=== PATIENT | female | born 1995 | race Caucasian/White ===

== ENCOUNTER 2018-08-31 09:23 | Outpatient (CLI) | payer BC ==
[~2018-08-31] VITALS: Ht 160 cm; Wt 56.2 kg
[2018-08-31] MEDS ORDERED: CETI10TA17 PO (15:44)
[2018-08-31] MEDS ORDERED: RT-ALBUINH IH (15:44)
[2018-08-31] MEDS ORDERED: FLUT1DIS28 IH (15:44)
[2018-08-31] MEDS ORDERED: NITR100C10 PO (15:44)
[2018-08-31] MEDS ORDERED: MONT10TA24 PO (15:44)
[2018-08-31] MEDS ORDERED: PROM25TA14 PO (15:44)
[2018-08-31] MEDS ORDERED: OMEP40CA36 PO (15:44)
[2018-09-05] MEDS ORDERED: [UNRECOGNIZED DRUG - CODE] PO (13:57)
[2018-09-05] MEDS ORDERED: ONDN4T PO (13:57)
[2018-09-05] MEDS ORDERED: PROM25TA14 PO (13:57)
== END 2018-08-31 15:45 | disposition home or self-care (01) ==
LOC: PREOP 09:23
PROVIDERS: ATTEND Surgery
DX: Z01.818 Encounter for other preprocedural examination (principal)

== ENCOUNTER 2018-09-05 10:51 | Day surgery (SDC) | payer BC ==
[~2018-09-05] VITALS: Ht 160 cm; Wt 56.2 kg
[~2018-09-05 10:51] MED LIST: CETI10TA17 PO; FLUT1DIS28 IH; MONT10TA24 PO; NITR100C10 PO; OMEP40CA36 PO; PROM25TA14 PO; RT-ALBUINH IH
[2018-09-05] MEDS ORDERED: NS IV 500 ML 500 ML ONE (10:56)
[2018-09-05] MEDS ORDERED: NS IV 500 ML 500 ML IV PRN (11:01)
[2018-09-05 11:05] VITALS: BP 125/88
[2018-09-05] MEDS ORDERED: LIDOCAINE JELLY 2% 6 ML SYRINGE MM PRN (11:15)
[2018-09-05] MEDS ORDERED: MIDAZOLAM 2 MG/2 ML (VERSED) VIAL IVP ONE (11:15)
[2018-09-05] MEDS ORDERED: HURRICAINE EXT TUBE (BENZOCAINE) XX PRN (11:15)
[2018-09-05] MEDS ORDERED: fentaNYL INJECTION 100 MCG/2 ML AMP IVP ONE (11:15)
[2018-09-05] MEDS ORDERED: MIDAZOLAM 2 MG/2 ML (VERSED) VIAL ONE ×6 (12:09→12:45)
[2018-09-05] MEDS ORDERED: LIDOCAINE JELLY 2% 6 ML SYRINGE ONE (12:09)
[2018-09-05] MEDS ORDERED: fentaNYL INJECTION 100 MCG/2 ML AMP ONE (12:09)
[2018-09-05] MEDS ORDERED: HURRICAINE EXT TUBE (BENZOCAINE) ONE (12:10)
--- NOTE | 2018-09-05 12:24 | Conscious Sedation/ASA ---
Conscious Sedation Pre-Proced Time 11:45 ASA Score 1 For ASA 3 and 4: Consider anesthesia and medical clearance. Also, for patients with a history of failed moderate sedation consider anesthesia. Airway Lungs Heart ASA score ASA 1: a normal healthy patient ASA 2: a patient with a mild systemic disease (mid diabetes, controlled hypertension, obesity ASA 3: a patient with a severe systemic disease that limits activity (angina , COPD, prior Myocardial infarction) ASA 4: a patient with an incapacitating disease that is a constant threat to life (CHF, renal failure) ASA 5: a moribund patient not expected to survive 24 hrs. (ruptured aneurysm) ASA 6: a declared brain patient whose organs are being harvested. For emergent operations, add the letter E after the classification Mallampati Classification Grade 2 Sedation Plan Analgesia, Amnesia, Plan communicated to team members, Discussed options with patient/fam, Discussed risks with patient/fam The patient is an appropriate candidate to undergo the planned procedure, sedation, and anesthesia. The patient immediately re-assessed prior to indication. DANA NICOLE MD Sep 05, 2018 12:24 pm
--- NOTE | 2018-09-05 12:25 | Progress Note-Pre Operative ---
Pre-Operative Progress Note H&P Reviewed The H&P was reviewed, patient examined and no changes noted. Date Seen by Provider: Sep 05, 2018 Time Seen by Provider: 11:45 Date H&P Reviewed: Sep 05, 2018 Time H&P Reviewed: 11:45 Pre-Operative Diagnosis: persistent nausea, dysphagia, weight loss DANA NICLOE MD Sep 05, 2018 12:25 pm
[2018-09-05] MEDS ORDERED: HYDROcodone/APAP 5 MG/325 MG (LORTAB) TAB PO PRN (12:30)
[2018-09-05] MEDS ORDERED: ACETAMINOPHEN 325 MG TABLET PO PRN (12:30)
[2018-09-05] MEDS ORDERED: ONDANSETRON 4 MG/2 ML (SDV) Z0FRAN IV PRN (12:30)
[2018-09-05] MEDS ORDERED: morphine INJ 10 MG/ML 1ML (SYR OR VIAL) IV PRN (12:30)
[2018-09-05 13:25] VITALS: BP 110/67
--- NOTE | 2018-09-05 13:53 | Progress Note-Post Operative ---
Post-Operative Progess Note Surgeon (s)/County Director (s) Surgeon DANA NICOLE MD County Director: NONE Pre-Operative Diagnosis persistent nausea, dysphagia, weight loss Post-Operative Diagnosis reflux esophagitis(stage2-3), small HH(1.5cm), mild-mod gastritis, mild distal esophageal stricture vs. achalasia. Procedure & Operative Findings Date of Procedure 09/05/18 Procedure Performed/Findings EGD with bx and balloon dilatation. Anesthesia Type CS Estimated Blood Loss Estimated blood loss (mL): minimal Specimens/Packing Specimens Removed duodenum, antrum, GE jxn(for barretts and esinophilic esophagitis) DANA NICOLE MD Sep 05, 2018 1:53 pm
[2018-09-05] MEDS ORDERED: ONDN4T PO (13:57)
[2018-09-05] MEDS ORDERED: [UNRECOGNIZED DRUG - CODE] PO (13:57)
[2018-09-05] MEDS ORDERED: PROM25TA14 PO (13:57)
--- NOTE | 2018-09-05 13:59 | Discharge Inst-Surgical ---
D/C Lap Instructions-KIDO New, Converted, or Re-Newed RX: RX on Chart Follow Up Appt in 6 weeks Activity as tolerated High Fiber Diet 25g or more per day Avoid Alcohol, Caffeine, Spicy [place] and Acid foods. Avoid milk and milk products and all sodas. Drink 64 fluid oz or more of fluids per day. Symptoms to Report: Fever over 101 degree F, Nausea/Vomiting If any problems/questions: Contact your physician or go to Emergency Room DANA NICOLE MD Sep 05, 2018 1:59 pm
[2018-09-05 14:00] VITALS: BP 99/75
[2018-09-05 14:14] VITALS: BP 99/75
--- NOTE | 2018-09-05 14:41 | OPERATIVE REPORT ---
DATE OF SERVICE: 09/05/2018 ATTENDING PRIMARY CARE PHYSICIAN: Dr. Loja in [place], [place]. PREOPERATIVE DIAGNOSIS: Persistent nausea, dysphagia, epigastric pain, weight loss. POSTOPERATIVE DIAGNOSES: Reflux esophagitis between stage II and III, mild distal esophageal stricture versus lower esophageal sphincter hypertonicity, small hiatal hernia approximately 1.5 cm in size, mild gastritis. Pylorus and duodenum appeared normal. PROCEDURE: EGD with biopsy and balloon dilatation. SURGEON: Dana Nicole MD ANESTHESIA: Conscious sedation. ESTIMATED BLOOD LOSS: Minimal. FINDINGS: As stated in the postop. DISPOSITION: The patient tolerated the procedure well. INDICATIONS: The patient is a 23-year-old female with a multitude of complaints for the past year that encompassed the upper gastrointestinal tract. She first reports that in early 2018, she has had issues with nausea. 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 She believes that all these biopsies were negative for H. pylori, celiac disease or any Morales's esophagus or dysplasia. She then underwent a gastric emptying study at [place]. She states it did show borderline delayed gastric emptying. However, she was then referred to [facility] where another gastric emptying study was performed, which she reports to be normal. She did undergo a trial of Reglan; however, she did continue to have symptoms of nausea and she has been on different antacids and is currently on omeprazole 40 mg b.i.d.; however, continues to have symptoms. She reports initially that she did have some risk factors including drinking a significant amount of caffeinated beverages would not do however, since her symptoms, she has not drank copious amounts of caffeinated beverages and she does not smoke and rarely has any alcohol. At some point, this was thought to be due to her gallbladder and she underwent a laparoscopic cholecystectomy; however, states that she continues to have this issue with nausea. She also reports that she has undergone an esophageal manometry study as well as a pH probe; however, believes that these were normal. She does also have a history of asthma and allergies. She reports that she has occasional episodes of diarrhea; however, not severe. Her differential diagnosis is wide; however, includes a reflux esophagitis, achalasia, gastritis, H. pylori, duodenitis and food allergies as well as some form of gastrointestinal dysmotility disorder. DESCRIPTION OF PROCEDURE: The patient was brought to the endoscopy suite, laid in the left lateral decubitus position with the head slightly elevated. After adequate IV pain and sedating medications and conscious sedation anesthesia, the mouthpiece was applied. Endoscope was placed in the mouth, visualizing the pharynx and hypopharyngeal region. Vocal cords, epiglottis and vallecula identified and appeared to be normal. The endoscope was then gently intubated. The esophageal opening and esophagus insufflated. Endoscope was then advanced through the first, second and third portion of the esophagus. At the level of the GE junction, a reflux esophagitis between stage II and III identified. There were definite signs of reflux esophagitis. There is also narrowing in this region. However, we could not differentiate a distal esophageal stricture versus hypertonicity of the lower esophageal sphincter. Several biopsies of the GE junction were taken to rule out Morales's esophagus and dysplasia as well as eosinophilic esophagitis. The endoscope was then advanced to the stomach and endoscope retroflexed, visualizing a small hiatal hernia approximately 1.5 cm in size. There was a mild gastritis. There were no formal ulcerations, polyps or any neoplasms identified. There was nothing within the stomach to suggest gastroparesis. A biopsy was taken of the stomach and antrum for H. pylori. Endoscope was then advanced to the pylorus and the first and second portion of the duodenum, which appeared normal with no distal obstructions. We then proceeded with distal esophagus dilatation. A balloon was placed in the stomach and pulled back to the gastroesophageal junction. We first proceeded to 2 atmospheres of pressure of 18 mm and she did show a visible discomfort, which may indicate that she does have a stricture versus some level of achalasia. We then proceeded to 4 atmospheres of pressure or 19 mm in circumferential diameter with moderate resistance and left this in place for approximately 60 seconds. We then desufflated the balloon. Good hemostasis was observed and there were no mucosal tears. The endoscope was slowly withdrawn while taking a second look and suctioning of residual air with no additional findings. The patient tolerated the procedure well. We will await the biopsy results. We will have her continue with her recently prescribed Dexilant; however, we will also proceed with antinausea medications as well as a trial of Motilin. With these findings of potential stricture versus achalasia, we may proceed with another esophageal manometry study as well as a possibility of a possible Gastrografin upper GI as well as small bowel follow through. If she feels better and able to take in food without any nausea or dysphagia, this may represent achalasia and she may benefit from graded dilatation. Job ID: [id number] DocumentID: [id number] Dictated Date: 09/05/2018 13:22:31 Psych Nurse Date: 09/05/2018 14:40:22 Dictated By: DANA NICOLE MD
== END 2018-09-05 14:15 | disposition home or self-care (01) ==
LOC: ENDO 10:51
PROVIDERS: ATTEND Surgery
DX: K22.2 Esophageal obstruction (principal); K21.0 Gastro-esophageal reflux disease with esophagitis; K44.9 Diaphragmatic hernia without obstruction or gangrene; K29.70 Gastritis, unspecified, without bleeding; K31.84 Gastroparesis; J45.909 Unspecified asthma, uncomplicated; Z79.899 Other long term (current) drug therapy
CPT/HCPCS: 84703

== ENCOUNTER 2018-10-30 06:31 | Outpatient (CLI) | payer BC ==
[~2018-10-30] VITALS: Ht 160 cm; Wt 56.2 kg
[~2018-10-30 06:31] MED LIST changes: +ONDN4T PO; +[UNRECOGNIZED DRUG - CODE] PO
[2018-10-30] MEDS ORDERED: CEPH250T PO (10:45)
== END 2018-10-30 10:47 | disposition home or self-care (01) ==
LOC: PREOP 06:31
PROVIDERS: ATTEND Surgery
DX: Z01.818 Encounter for other preprocedural examination (principal)

== ENCOUNTER 2018-11-01 11:18 | Day surgery (SDC) | payer BC ==
[~2018-11-01] VITALS: Ht 160 cm; Wt 56.2 kg
[~2018-11-01 11:18] MED LIST changes: +CEPH250T PO
[2018-11-01 11:25] VITALS: BP 117/81
[2018-11-01] MEDS ORDERED: NS IV 500 ML 500 ML IV PRN (11:25)
[2018-11-01] MEDS ORDERED: NS IV 500 ML 500 ML ONE (11:30)
[2018-11-01] MEDS ORDERED: HURRICAINE EXT TUBE (BENZOCAINE) XX PRN ×2 (11:30→13:45)
--- NOTE | 2018-11-01 12:05 | Conscious Sedation/ASA ---
Conscious Sedation Pre-Proced Time 11:30 ASA Score 1 For ASA 3 and 4: Consider anesthesia and medical clearance. Also, for patients with a history of failed moderate sedation consider anesthesia. Airway Lungs Heart ASA score ASA 1: a normal healthy patient ASA 2: a patient with a mild systemic disease (mid diabetes, controlled hypertension, obesity ASA 3: a patient with a severe systemic disease that limits activity (angina , COPD, prior Myocardial infarction) ASA 4: a patient with an incapacitating disease that is a constant threat to life (CHF, renal failure) ASA 5: a moribund patient not expected to survive 24 hrs. (ruptured aneurysm) ASA 6: a declared brain patient whose organs are being harvested. For emergent operations, add the letter E after the classification Mallampati Classification Grade 2 Sedation Plan Analgesia, Amnesia, Plan communicated to team members, Discussed options with patient/fam, Discussed risks with patient/fam The patient is an appropriate candidate to undergo the planned procedure, sedation, and anesthesia. The patient immediately re-assessed prior to indication. DANA NICOLE MD Nov 01, 2018 12:05
--- NOTE | 2018-11-01 12:06 | Progress Note-Pre Operative ---
Pre-Operative Progress Note H&P Reviewed The H&P was reviewed, patient examined and no changes noted. Date Seen by Provider: Nov 01, 2018 Time Seen by Provider: 11:30 Date H&P Reviewed: Nov 01, 2018 Time H&P Reviewed: 11:30 Pre-Operative Diagnosis: dysphagia DANA NICOLE MD Nov 01, 2018 12:06
[2018-11-01] MEDS ORDERED: morphine INJ 10 MG/ML 1ML (SYR OR VIAL) IV PRN (12:15)
[2018-11-01] MEDS ORDERED: ACETAMINOPHEN 325 MG TABLET PO PRN (12:15)
[2018-11-01] MEDS ORDERED: HYDROcodone/APAP 5 MG/325 MG (LORTAB) TAB PO PRN (12:15)
[2018-11-01] MEDS ORDERED: ONDANSETRON 4 MG/2 ML (SDV) Z0FRAN IV PRN (12:15)
[2018-11-01] MEDS ORDERED: MIDAZOLAM 2 MG/2 ML (VERSED) VIAL ONE ×5 (12:57→13:19)
[2018-11-01] MEDS ORDERED: HURRICAINE EXT TUBE (BENZOCAINE) ONE (12:57)
[2018-11-01] MEDS ORDERED: fentaNYL INJECTION 100 MCG/2 ML AMP ONE ×2 (12:57→13:19)
[2018-11-01] MEDS ORDERED: LIDOCAINE JELLY 2% 6 ML SYRINGE ONE (12:57)
[2018-11-01] MEDS ORDERED: fentaNYL INJECTION 100 MCG/2 ML AMP IVP ONE (13:45)
[2018-11-01] MEDS ORDERED: LIDOCAINE JELLY 2% 6 ML SYRINGE MM PRN (13:45)
[2018-11-01] MEDS ORDERED: MIDAZOLAM 2 MG/2 ML (VERSED) VIAL IVP ONE (13:45)
--- NOTE | 2018-11-01 13:52 | Progress Note-Post Operative ---
Post-Operative Progess Note Surgeon (s)/Community Case Manager (s) Surgeon DANA NICOLE MD Community Case Manager: none Pre-Operative Diagnosis dysphagia Post-Operative Diagnosis reflux esophagitis(stage2), mild distal esophageal stricture, small type 1 HH(1cm), mild gastritis. Procedure & Operative Findings Date of Procedure 11/01/18 Procedure Performed/Findings EGD with bx and balloon dilatation. Anesthesia Type CS Estimated Blood Loss Estimated blood loss (mL): minimal Specimens/Packing Specimens Removed GE jxn, antrum DANA NICOLE MD Nov 01, 2018 13:52
--- NOTE | 2018-11-01 13:54 | Discharge Inst-Surgical ---
D/C Lap Instructions-BONNIE Follow Up PRN Activity as tolerated Avoid Alcohol, Caffeine, Spicy [place] and Acid foods. Drink 64 fluid oz or more of fluids per day. Symptoms to Report: Fever over 101 degree F, Nausea/Vomiting If any problems/questions: Contact your physician or go to Emergency Room DANA NICOLE MD Nov 01, 2018 13:54
[2018-11-01 13:55] VITALS: BP 114/71
[2018-11-01 14:20] VITALS: BP 109/85
[2018-11-01 14:22] VITALS: BP 109/85
--- NOTE | 2018-11-01 23:50 | OPERATIVE REPORT ---
DATE OF SERVICE: 11/01/2018 ATTENDING PRIMARY CARE PHYSICIAN: Dr. Loja in [place], [place]. PREOPERATIVE DIAGNOSIS: Recurrent dysphagia and regurgitation. POSTOPERATIVE DIAGNOSES: Reflux esophagitis stage II, mild distal esophageal stricture, small type 1 hiatal hernia 1 cm in size, mild gastritis. No distal obstructions. PROCEDURE: EGD with biopsy and balloon dilatation. SURGEON: Dana Nicole MD ANESTHESIA: Conscious sedation. ESTIMATED BLOOD LOSS: Minimal. FINDINGS: Reflux esophagitis grade II with no Schatzki's ring identified. There was what appeared to be narrowed distal esophageal lumen, which may have been related to muscle contractions; however, may have been due to a narrowing from the subcutaneous tissue and muscle layers. There was a hiatal hernia that was identified before which was small, approximately 1 cm in size. There was a mild gastritis. There were no ulcers, polyps or any neoplasms. Pylorus and duodenum appeared normal with no distal obstructions. There was no retained food substance in the stomach to indicate any gastroparesis. DISPOSITION: The patient tolerated the procedure well. INDICATIONS: The patient is a 23-year-old female with a multitude of complaints for the past year of upper gastrointestinal tract. In early 2018, she had issues with nausea. She was seen by work from home and EGDs were performed as well as biopsies and were negative for H. pylori, celiac disease as well as negative for Morales's esophagus. She then underwent a gastric emptying study at [place] which showed borderline delayed gastric emptying; however, was then referred to [facility] where another gastric emptying study was performed, which was normal. A trial of Reglan was done; however, she continued to have issues with nausea. She has been on a number of different acid reducers including oral antacids, omeprazole, Dexilant as well as others which she states has not helped as well. Her risk factors included caffeinated beverages and rare alcohol. She does not report any smoking. She has also undergone esophageal manometry as well as a pH probe study, which she believes to be normal. She does have a history of asthma and allergies and reports occasional episodes of diarrhea; however, not severe. She did undergo an EGD with biopsy and balloon dilatation by us on 09/05/2018, and was found to have a reflux esophagitis between stage II and III as well as a mild distal esophageal stricture versus esophageal sphincter hypertonicity and a small hiatal hernia. She states that after the balloon dilatation she did feel transiently better and was able to swallow without any issues with dysphagia. On 10/13/2018, she reports that again she has had recurrent episodes of dysphagia; however, not severe and would like to proceed with another dilatation procedure with a larger balloon. DESCRIPTION OF PROCEDURE: The patient was brought to the endoscopy suite, laid in the left lateral decubitus position with head slightly elevated. After adequate IV pain and sedative medications and conscious sedation anesthesia, the mouthpiece was applied. Endoscope was placed in the mouth, visualizing the pharynx and hypopharyngeal region. Vocal cords, epiglottis and vallecula identified and appeared to be normal. The endoscope was gently intubated into esophageal opening and esophagus insufflated. The endoscope was then advanced to the first, second and third portion of the esophagus at the level of the GE junction, there again appeared to be a decrease luminal circumference of the distal esophagus, which may have been due to the musculature hypertonicity versus a deeper level scar tissue. There was a reflux esophagitis identified, which was classified as a stage II. There was no Schatzki's ring identified. A biopsy was taken using forceps with visualization of good hemostasis. The endoscope was then advanced into the stomach and endoscope retroflexed, visualizing a small hiatal hernia approximately 1 cm in size. There was a mild severity gastritis noted. There were no formal ulcerations, polyps or any neoplasms. A biopsy was taken of the stomach antrum with forceps with visualization of good hemostasis. The endoscope was then advanced to the pylorus and the first and second portion of the duodenum, which appeared normal. No distal obstructions. There was also no retained food substance within the stomach or duodenum to indicate any gastroparesis. We then proceeded with the esophageal dilatation. The balloon was advanced to the stomach under direct visualization into the stomach and then pulled back to the area of the stricture. First dilated to 2 atmospheres of pressure or 18 mm in circumferential diameter. We then proceeded to 4 atmospheres of pressure or 19 mm with no resistance. We then proceeded to 6 atmospheres and then 7 atmospheres of pressure or essentially 20 mm in luminal diameter and she did show some physical signs of discomfort that are consistent with a successful dilatation. The balloon was left in place for 60 seconds and desufflated and removed. There was no bleeding or any mucosal tears identified. The endoscope was then slowly withdrawn while taking a second look and suctioning of residual air with no additional findings. The patient tolerated the procedure well. We will recommend continued medical management with the necessary lifestyle and diet accommodation including cessation of caffeinated beverages, small and more frequent meals, avoidance of eating at night as well as head elevation while lying supine. We also want her to continue with the omeprazole 40 mg on a b.i.d. basis for now. We will have her follow up on a p.r.n. basis. Job ID: [id number] DocumentID: [id number] Dictated Date: 11/01/2018 13:47:41 Cupola Tapper Date: 11/01/2018 23:49:37 Dictated By: DANA NICOLE MD
== END 2018-11-01 14:24 | disposition home or self-care (01) ==
LOC: ENDO 11:18
PROVIDERS: ATTEND Surgery
DX: K22.2 Esophageal obstruction (principal); K21.0 Gastro-esophageal reflux disease with esophagitis; K44.9 Diaphragmatic hernia without obstruction or gangrene; K29.70 Gastritis, unspecified, without bleeding; J45.909 Unspecified asthma, uncomplicated; Z79.899 Other long term (current) drug therapy
CPT/HCPCS: 84703